=== PATIENT | male | born 1930 ===

== ENCOUNTER 2017-05-17 16:06 | Inpatient (IN) | payer MEDICARE, OTHER ==
[~2017-05-17] VITALS: Ht 182.9 cm; Wt 66.5 kg
[2017-05-17] MEDS ORDERED: K-DUR20 MEQ PO (18:34)
[2017-05-17] MEDS ORDERED: GAVISCON E1 TAB.CHEW PO (18:37)
[2017-05-17] MEDS ORDERED: PROVENTIL/2.5 MG/3 M INH (18:38)
[2017-05-17] MEDS ORDERED: BAYER CHEWABLE81 MG PO (18:39)
[2017-05-17] MEDS ORDERED: BUSPAR10 MG PO (18:40)
[2017-05-17] MEDS ORDERED: ALPHAGAN 0.2%5 ML EACH EYE (18:40)
[2017-05-17] MEDS ORDERED: TUMS500 MG PO (18:41)
[2017-05-17] MEDS ORDERED: COREG 3.1253.125 MG PO (18:41)
[2017-05-17] MEDS ORDERED: FAMOTIDINE10 MG PO (18:42)
[2017-05-17] MEDS ORDERED: LOVENOX40 MG/0.4 SC (18:42)
[2017-05-17] MEDS ORDERED: MUCINEX D1 TAB.SR . PO (18:43)
[2017-05-17] MEDS ORDERED: HYDROCODONE-APA1 TAB PO (18:44)
[2017-05-17] MEDS ORDERED: PRINIVIL10 MG PO (18:45)
[2017-05-17] MEDS ORDERED: XALATAN 0.0052.5 ML EACH EYE (18:45)
[2017-05-17] MEDS ORDERED: NITRO-BID60 GM TP (18:46)
[2017-05-17] MEDS ORDERED: NITROSTAT0.4 MG SL (18:47)
[2017-05-17] MEDS ORDERED: SEROQUEL50 MG PO (18:49)
[2017-05-17] MEDS ORDERED: ALDACTONE25 MG PO (18:49)
[2017-05-17] MEDS ORDERED: COMBIGAN OPHT DR5 ML EACH EYE (18:52)
[2017-05-19] MEDS ORDERED: KLOR-CON 1010 MEQ PO (18:01)
[2017-05-19] MEDS ORDERED: SEROQUEL50 MG PO (18:02)
[2017-05-19] MEDS ORDERED: FUROSEMIDE40 MG PO (18:19)
--- NOTE | 2017-05-19 18:30 | NUR ---
PATIENT IS BROUGHT TO DETENTION FROM [facility] VIA EMS ON A STRETCHER. PATIENT IS TRANSFERRED FROM STRETCHER TO A W/C. PATIENT C/O HAVING A SORE TO HIS BUTTOCKS AND HE SAYS HIS BUTT HURTS TO SIT ON THE W/C. HE IS ARGUMENTATIVE HIS FAMILY IS HERE SIGNING PAPERS. CODE WORDD ESTABLISHED. HE REFUSES TO GIVE UP HIS LIFE ALERT OR HIS WRIST WATCH. PATIENT IS EYAK AND HAS ONE HEARING AID IN THE LEFT EAR. HE HAS UPPER DENTURES AND A PARTIAL ON THE BOTTOM. FAMILY SAYS PATIENT IS ABLE TO WALK, BUT HE NEEDS TO USE HIS WALKER, HE HAS FALLEN 6 MONTHS AGO. HE IS UNSTEADY CURRENTLY. PATIENT IS SITTING IN THE W/C IN THE HALLWAY RIGHT NOW AND HE TOLD JO-ANN CONTEH HE WANTS TO GO HOME AND HIRE SOMEONE TO TAKE CARE OF HIM.
--- NOTE | 2017-05-19 19:33 | NUR ---
PATIENT DOES HAVE A BERGERON CATHETER HE HAS URINARY RETENTION.
[2017-05-20 01:53] VITALS: BP 108/74; BMI 21.9
--- NOTE | 2017-05-20 04:06 | NUR ---
B) PATIENT IS ALERT AND ORIENTED TO SELF AND HOSPITAL, RESTLESS AND WANTING TO GO HOME OR RETURN TO [facility], ARGUMENTIVE WITH FAMILY , VERY CONFUSED AND DOES NOT UNDERSTAND WHY HE IS HERE, I) ADMINISTERED SCHEDULED MEDICATIONS, REDIRECTED NEEDED, R) MEDICATION COMPLIANT, RESTLESS, P) CONTINUE PLAN OF CARE.
[2017-05-20 05:54] LABS: BASOPHILS 0.5 % (0-2); EOSINOPHILS 3.1 % (0-7); HEMATOCRIT 42.7 % (42.0-54.0); HEMOGLOBIN 15.2 g/dL (13.5-17.5); IMMATURE GRANULOCYTES 0.3 % (0-5); LYMPHOCYTES 15.2 % (15-50); MCH 34.9 pg (26.0-34.0); MCHC 35.6 g/dL (31.0-37.0); MCV 97.9 fL (80.0-100.0); MEAN PLATELET VOLUME 10.3 fL (7.4-10.4); MONOCYTES 12.3 % (2-11); NEUTROPHILS 68.6 % (40-80); PLATELET COUNT 222 10x3/uL (130-400); RBC 4.36 10x6/uL (4.20-6.10); RDW 13.5 % (11.5-14.5); WBC 7.4 10x3/uL (4.8-10.8)
[2017-05-20 06:12] LABS: HEMOGLOBIN A1C 5.2 % (4.8-6.0)
[2017-05-20 06:22] LABS: ALBUMIN 3.6 g/dL (3.4-5.0); ANION GAP 13.9 mmol/L (8-16); BILIRUBIN - TOTAL 0.68 mg/dL (0.2-1.3); CARBON DIOXIDE 28.9 mmol/L (21.0-32.0); CHOL - HDL RATIO 2.4 ratio (2.3-4.9); CREATININE - SERUM 1.1 mg/dL (0.6-1.3); LDL-HDL RATIO 1.2 ratio (1.5-3.5); POTASSIUM - SERUM 3.8 mmol/L (3.5-5.1); PROTEIN - SERUM 7.3 g/dL (6.4-8.2); THYROID STIMULATING HORMONE 4.27 uIU/mL (0.36-3.74)
[2017-05-20 07:00] VITALS: BP 94/42
[2017-05-20 08:18] LABS: APPEARANCE CLEAR (CLEAR); BILIRUBIN NEGATIVE (NEGATIVE); COLOR YELLOW (YELLOW); GLUCOSE NEGATIVE (NEGATIVE); KETONE NEGATIVE (NEGATIVE); LEUKOCYTE ESTERASE 1+ (NEGATIVE); NITRITE NEGATIVE (NEGATIVE); PROTEIN NEGATIVE (NEGATIVE); UROBILINOGEN NORMAL (NORMAL)
[2017-05-20 08:20] LABS: BACTERIA MODERATE /hpf (NONE SEEN); EPITHELIAL CELLS 0-5 /hpf (0-5)
--- NOTE | 2017-05-20 08:30 | NUR ---
PT SITTING IN DAY ROOM, EATING BREAKFAST. PT CALM AND COOPERATIVE. RR EVEN AND UNLABORED. PT DENIES NEEDS AT THIS TIME. WILL CPOC.
--- NOTE | 2017-05-20 10:45 | NUR ---
PT REPORTS FEELING VERY NERVOUS, REQUESTED A PAIN PILL. WILL GIVE PRN NORCO AND CTM PT CONDTION, VSS.
--- NOTE | 2017-05-20 11:13 | NUR ---
PT NOW REPORTING STOMACH PAIN. REQUESTED PRN FOR DYSPEPSIA. WILL GIVE AND CTM.
--- NOTE | 2017-05-20 17:05 | NUR ---
PT REQUESTED PAIN MEDICATION. GAVE PRN NORCO. WILL REASSESS PAIN AND CTM.
--- NOTE | 2017-05-20 18:02 | NUR ---
PT RESTING QUIETLY IN DAY ROOM, RR EVEN AND UNLABORED. PT DENIES NEEDS AT THIS TIME, WILL GIVE REPORT ON PT CONDITION FOR THE DAY.
[2017-05-20 19:30] VITALS: BP 85/61
--- NOTE | 2017-05-20 20:26 | NUR ---
B) PT SITTING ON COUCH IN DAY ROOM. PT IS ALERT AND ORIENTED AND ABLE TO VERBALIZE NEEDS. I) SHIFT ASSESSMENT AND MEDICATIONS AT THIS TIME. R) PT TOOK ALL MEDICATION WITH NO PROBLEMS AT THIS TIME. P) WILL CONTINUE CURRENT PLAN OF CARE.
[2017-05-21 07:00] VITALS: BP 84/54
--- NOTE | 2017-05-21 08:15 | NUR ---
ASSESSMENT COMPLETE. BERGERON PATENT DRAINING YELLOW URINE. UP AD JAE WITH WALKER. REFUSING TO SIT IN CHAIR IN HALLWAY AT NURSES' STATION. STATES HE CAN ONLY SIT IN A CHAIR WITH ARMS AND THAT HE GOING BACK TO ROOM AND DOESN'T WANT TO EAT BREAKFAST OR LUNCH.
--- NOTE | 2017-05-21 08:37 | NUR ---
EATING BREAKFAST IN DINING ROOM. AM MEDICATION GIVEN WITHOUT DIFFICULTY. NORCO GIVEN FOR COMPLAINTS OF GENERALIZED PAIN.
--- NOTE | 2017-05-21 09:15 | NUR ---
PATIENT NOTIFIED THAT SPITTING ON FLOOR IS NOT APPROPRIATE BEHAVIOR. VOICED UNDERSTANDING. SITTING ON COUCH RESTING QUIETLY AT THIS TIME.
[2017-05-21 10:24] VITALS: Ht 182.9 cm; Wt 66.5 kg
--- NOTE | 2017-05-21 11:08 | PSY ---
PATIENT NAME:ROSY ESPINO MEDICAL RECORD: [id number] : [birth year] LOCATION:[facility] ADMISSION DATE: 05/19/17 ACCOUNT: [id number] PSYCHIATRIC EVALUATION DATE OF EVALUATION: 05/20/17 Psychiatric Evaluation IDENTIFYING DATA: The patient is 86 years old and he is admitted to the hospital on a voluntary basis. CHIEF COMPLAINT: None. HISTORY OF PRESENT ILLNESS: The patient is referred to us from [facility]. The patient was referred to us because he has been argumentative with his family, very disorganized, making delusional and aggressive statements. The family is unable to manage him. He cannot assist himself and he will not allow them to do so. The patient has a number of medical problems for which he was recently hospitalized at [facility]. PAST MEDICAL HISTORY: Significant for hypertension, cardiac arrhythmia, glaucoma, coronary artery disease. PAST PSYCHIATRIC HISTORY: None by his account. The patient has not been diagnosed with a dementia as far as I know, but he clearly is severely impaired cognitively. SOCIAL HISTORY: The patient is . He does have adult children involved with his care. He is a [employer] War [employer] to and worked for many years in [place] for [employer]. He was a cnc machinist 2nd shift. He functioned reasonably well socially and occupationally and has no history of drug or alcohol abuse or legal entanglements. FAMILY HISTORY: Negative for psychiatric disease by his report. ALLERGIES: No known drug allergies. CURRENT MEDICATIONS: Include potassium, Lasix, aspirin, Aldactone, lisinopril, Coreg, Pepcid, calcium, Seroquel, BuSpar, hydrocodone, nitroglycerin, albuterol and a variety of eye drops for glaucoma. MENTAL STATUS EXAMINATION: The patient is awake, alert and oriented to person and place. He is significantly mistaken about both the date and the circumstances of his admission. His mood is anxious. His affect is constricted. Thought processes are circumstantial. Memory, concentration and abstraction abilities are least moderately impaired and he denies any active intent to harm himself or others as well as overt psychotic symptoms. ASSETS: Supportive family members. LIABILITIES: Limited insight. DIAGNOSTIC IMPRESSION: AXIS I: Senile dementia of the Alzheimer's type with behavioral disturbances. AXIS II: None. AXIS III: Chronic obstructive pulmonary disease, hypertension, cardiac arrhythmia, coronary artery disease. AXIS IV: Moderate stressors. AXIS V: Global assessment of functioning is 30. PLAN: At this time, the patient is admitted to the hospital secondary to agitated behavior associated with a dementing illness. He will be comprehensively evaluated from both of medical, psychological, and social standpoint. His long-term prognosis is guarded. TRANSINT:[id number] Voice Confirmation ID: [id number] DOCUMENT ID: [id number] SACHA MILTON MD at 1108 CC: [id number] DICTATION DATE: 05/20/17 1230 AUDIO DIRECTOR: 05/20/17 1307 ADM IN [place] [id number] [place] [id number]
--- NOTE | 2017-05-21 18:02 | NUR ---
COMPLAINING OF PAIN TO BUTTOCKS. REDNESS NOTED TO BUTTOCKS AND COCCYX. BUTT PASTE APPLIED. NORCO GIVEN FOR COMPLAINT OF GENERALIZED PAIN.
[2017-05-21 19:54] VITALS: BP 122/71
--- NOTE | 2017-05-21 20:31 | NUR ---
RECEIVED IN DAYRROM. SITTING IN RECLINING CHAIR WITH PEERS BY HIS SIDE. CALM AND COOPERATIVE WITH CARE AND ASSESSMENTS. NO SIGNS OF AGGRESSION. BERGERON INTACT. REDIRECT AND REORIENT NEEDED. CONTINUES TO SIT QUIETLY IN RECLINER. CONTINUE PLAN OF CARE
--- NOTE | 2017-05-21 21:40 | NUR ---
WHILE TRYING TO GIVE THE LOVENOX SHOT PATIENT REFUSED AFTER I SCANNED AND SUBMITTED. PLACED INTO HIS CASSETTE.
--- NOTE | 2017-05-22 07:35 | NUR ---
ASSESSMENT COMPLETE. REDNESS NOTED TO BUTTOCKS. BUTT PASTE IN USE. BERGERON PATENT DRAINING YELLOW URINE. COMPLAINING OF GENERALIZED PAIN.
[2017-05-22 08:00] VITALS: BP 94/58
--- NOTE | 2017-05-22 10:17 | PN ---
PATIENT:ROSY ESPINO MEDICAL RECORD: [id number] LOCATION:[facility] ADMISSION DATE: 05/19/17 PROGRESS NOTE DATE OF SERVICE: 05/21/2017 SUBJECTIVE: The patient's case was discussed with staff. He has no new complaint. OBJECTIVE: The patient has not been aggressive today. He clearly has significant cognitive impairment. He is only partially oriented and has almost no short-term memory. He has no overt psychotic symptoms. ASSESSMENT: No change in diagnoses. PLAN: I anticipate the patient will be transitioned out of the hospital in a day or two. His prognosis is guarded and his primary need at this time is for supervision. It is absolutely inappropriate for him to live alone. He has no insight about this being inappropriate. TRANSINT:[id number] Voice Confirmation ID: [id number] DOCUMENT ID: [id number] SACHA MILTON MD at 1017 CC: [id number] DICTATION DATE: 05/21/17 1409 CLOTH REELER: 05/21/17 1635 ADM IN [place] [address] [place] [address]
--- NOTE | 2017-05-22 19:59 | NUR ---
RECEIVED IN DAYROOM. SITTING IN CHAIR WITH PEERS AT HIS SIDE. CALM AND COOPERATIVE WITH CARE AND ASSESSMENTS. NO SIGNS OF AGGRESSION. ENCOURAGE TO EXPRESS NEEDS. CONTINUES TO SIT QUIETLY AT THIS TIME. CONTINUE PLAN OF CARE
[2017-05-22 21:15] VITALS: BP 124/59
[2017-05-23 06:14] LABS: RAPID PLASMA REAGIN Non Reactive (Non Reactive)
[2017-05-23 07:58] VITALS: BP 97/73
[2017-05-23 09:16] LABS: FOLATE (FOLIC ACID) - SERUM >20.0 ng/mL (>3.0)
[2017-05-23 10:17] LABS: VITAMIN D 25 HYDROXY 51.5 ng/mL (30.0-100.0)
--- NOTE | 2017-05-23 12:49 | PN ---
PATIENT:ROSY ESPINO MEDICAL RECORD: [id number] LOCATION:[facility] ADMISSION DATE: 05/19/17 PROGRESS NOTE DATE OF SERVICE: 05/22/2017 SUBJECTIVE: The patient's case was discussed with staff. He has no new complaint. OBJECTIVE: The patient is in good behavioral control. He has had no agitation. No paranoia. No psychotic symptoms. Unfortunately, he is also severely impaired cognitively. ASSESSMENT: No change in diagnoses. PLAN: The patient is not eating well. I am going to start him on Megace for its appetite-stimulating properties. His long-term prognosis is guarded. TRANSINT:[id number] Voice Confirmation ID: [id number] DOCUMENT ID: [id number] SACHA MILTON MD at 1249 CC: [id number] DICTATION DATE: 05/22/17 1025 LAST MODEL DEPARTMENT SUPERVISOR: 05/22/17 1042 ADM IN [place] [address] [place] [address]
--- NOTE | 2017-05-23 14:02 | NUR ---
B) PATIENT IS AWAKE AND ALERT, HE IS [place], WEARS A HEARING AID IN THE LEFT EAT AND HE HAS A BERGERON CATH THAT IS DRAINING CLEAR URINE. PATIENT IS IRRITABLE HE WANTS TO GET OUT OF HERE. HE IS GROUCHY, NO DELUSIONS OR MENTION OF ANY THIVERY TOWARD HIM. HE HAS NOT SHOWN AGGRESSION TODAY. I) PROVIDE PRESCRIBED MEDS. R) PATIENT IS COMPLIANT WITH MEDS. P) CONTINUE POC.
[2017-05-23 19:55] VITALS: BP 104/68
--- NOTE | 2017-05-23 23:50 | NUR ---
B) PATIENT IS ALERT AND ORIENTED TO SELF AND BEING IN A HOSPITAL, TURNS OFF HIS HEARING AID TO REST IN THE DAY ROOM AND NAP AT TIMES, I) ADMINISTERED SCHEDULED MEDICATIONS, MONITORED FOR BEHAVIORS, R) MEDICATION COMPLIANT, NO BEHAVIORS NOTED, P) CONTINUE PLAN OF CARE.
[2017-05-24 08:23] VITALS: BP 141/57
--- NOTE | 2017-05-24 11:06 | NUR ---
B) PATIENT IS AWAKE AND ALERT, HE IS QUIET AND HE IS SITTING TO HIMSELF. HE DOES NOT AMBULATE, HE SELF PROPELS IN THE W/C. HE HAS POOR SHORT TERM MEMORY RECALL. HE HAS BEEN COMPLIANT WITH MEDS TODAY. I) PROVIDE PRESCRIBED MEDS. R) PATIENT IS CALM AND RESERVED TODAY. P) CONTINUE POC.
[2017-05-24 19:34] VITALS: BP 107/54
[2017-05-24 20:18] LABS: ANION GAP 14.4 mmol/L (8-16); CALCIUM 9.2 mg/dL (8.5-10.1); CARBON DIOXIDE 26.7 mmol/L (21.0-32.0); CREATININE - SERUM 1.1 mg/dL (0.6-1.3); POTASSIUM - SERUM 4.1 mmol/L (3.5-5.1)
--- NOTE | 2017-05-25 02:01 | NUR ---
B) Patient is alert and oriented to self and being in a hospital, calm and cooperative with care and assessment, I) Administered scheduled medications, monitored for safety, R) Medication compliant, no behaviors noted, P) Continue plan of care.
[2017-05-25 07:53] VITALS: BP 115/71
--- NOTE | 2017-05-25 07:53 | PN ---
PATIENT:ROSY ESPINO MEDICAL RECORD: [id number] LOCATION:[facility] ADMISSION DATE: 05/19/17 PROGRESS NOTE DATE OF SERVICE: 05/24/2017 SUBJECTIVE: No new complaint. OBJECTIVE: The patient has been rather quiet and somewhat withdrawn. He has a past history of labile moods, but affect has been well controlled. He is just recently been started on antidepressants. On exam, mood is euthymic. Affect is rather constricted. Speech is low in volume and somewhat terse. Content of thought is negative for overt psychosis. Sensorium shows no change. ASSESSMENT: No change in diagnosis. PLAN: 1. Continue all current medications. 2. Continue supportive therapy. TRANSINT:[id number] Voice Confirmation ID: [id number] DOCUMENT ID: [id number] ANIYAH DRAKE III, MD at 0753 CC: [id number] DICTATION DATE: 05/24/17 1201 CUSTOM SKI MAKER: 05/24/17 1211 ADM IN [place] [id number] [place] [address]
[2017-05-25 19:51] VITALS: BP 84/49
--- NOTE | 2017-05-25 21:40 | PN ---
PATIENT:ROSY ESPINO MEDICAL RECORD: [id number] LOCATION:[facility] ADMISSION DATE: 05/19/17 PROGRESS NOTE DATE OF SERVICE: 05/25/2017 SUBJECTIVE: No new complaint. OBJECTIVE: Staff reports the patient continues to be somewhat manipulative in his behavior. He is rather attention seeking and drug seeking as well. On exam, mood is more or less euthymic. Affect is fairly bland. Speech tends to be somewhat tangential. Content of thought is preoccupied with somatic concerns. Sensorium is unchanged. ASSESSMENT: No change in diagnosis. PLAN: 1. Continue current medications. 2. Continue supportive therapy. TRANSINT:[id number] Voice Confirmation ID: [id number] DOCUMENT ID: [id number] ANIYAH DRAKE III, MD at 2140 CC: [id number] DICTATION DATE: 05/25/17 1227 HOME HEALTH AID: 05/25/17 1318 ADM IN [place] [address] [place] [id number]
--- NOTE | 2017-05-26 03:14 | NUR ---
B) patient alert and oriented to self and being in a hospital, calm and watching TV, cooperative with care and assessment. I) Administered scheduled medications, PRN Gaviscon 2 tabs given at 20:12, monitored for falls and safety. R) Medication compliant, no behaviors noted this shift. P) Continue plan of care.
--- NOTE | 2017-05-26 09:00 | NUR ---
B) ASSESSMENT COMPLETED. HE IS AWAKE AND ALERT, BUT VERY [place], AND WEARS A HEARING AID IN LEFT EAR ONLY. HE SELF PROPELS IN A WHEELCHAIR. NO AGGRESSION NOTED, ONLY IRRITABLE ABOUT BEING HERE. I) ADMINISTER PRESCRIBED MEDICATIONS. MONITOR FOR FALLS AND SAFETY. R) MEDICATION COMPLIANT AND RESTING QUIETLY IN RECLINER. P) CONTINUE PLAN OF CARE.
[2017-05-26 10:20] VITALS: BP 89/48
--- NOTE | 2017-05-26 13:14 | NUR ---
ULTRAM 50 MG PO GIVEN FOR LEVEL #8 KEG PAIN.
[2017-05-26 19:30] VITALS: BP 94/61
--- NOTE | 2017-05-27 03:46 | NUR ---
B) Patient alert and oriented to self, calm and cooperative with care and assessment, conplained of stomach upset, I) Administered scheduled medications, PRN Tums given , monitored for falls and safety. R) Medication compliant, resting quietly now. P) Continue plan of care.
[2017-05-27 07:00] VITALS: BP 106/69
--- NOTE | 2017-05-27 16:22 | NUR ---
ORIENTED TO SELF AND HOSPITAL.NO SIGNS OF AGGRESSION.COMPLIANT WITH MEDS AND STAFF.REST IN RECLINER.AMBULATES WITH PT.TRAMADOL GIVEN FOR C/O GENERALIZED PAIN.WILL CONTINUE WITH PLAN OF CARE,MONITOR FOR CHANGES AND SAFETY.
[2017-05-27 19:47] VITALS: BP 100/57
--- NOTE | 2017-05-27 23:47 | NUR ---
RECEIVED IN BEDROOM. RESTING IN BED WITH EYES OPEN. CALM AND COOPERATIVE WITH CARE AND ASSESSMENTS. NO SIGNS OF AGGRESSION. ENCOURAGE TO EXPRESS NEEDS. CONTINUES TO REST EYES CLOSED AT THIS TIME. CONTINUE PLAN OF CARE
[2017-05-28 07:22] LABS: ALBUMIN 3.2 g/dL (3.4-5.0); ANION GAP 11.5 mmol/L (8-16); BILIRUBIN - TOTAL 0.69 mg/dL (0.2-1.3); CALCIUM 9.3 mg/dL (8.5-10.1); CARBON DIOXIDE 30.8 mmol/L (21.0-32.0); CREATININE - SERUM 1.3 mg/dL (0.6-1.3); POTASSIUM - SERUM 4.3 mmol/L (3.5-5.1)
[2017-05-28 08:00] VITALS: BP 124/75
--- NOTE | 2017-05-28 09:48 | PN ---
PATIENT:ROSY ESPINO MEDICAL RECORD: [id number] LOCATION:[facility] ADMISSION DATE: 05/19/17 PROGRESS NOTE DATE OF SERVICE: 05/23/2017 SUBJECTIVE: The patient's case was discussed with staff. He has no new complaint. OBJECTIVE: The patient says that this is a big misunderstanding that he has no issues that would require him to be here and when that is argued with him, he becomes angry. He clearly has depressive symptoms. His family says that he has made statements about wanting to hurt himself. He emphatically denies that. ASSESSMENT: No change in diagnoses. PLAN: The patient will be given Zoloft at a dose of 25 mg daily. Zoloft is being used to treat his underlying depressive symptoms. He will be monitored for clinical changes associated with its use. TRANSINT:[id number] Voice Confirmation ID: [id number] DOCUMENT ID: [id number] SACHA MILTON MD at 0948 CC: [id number] DICTATION DATE: 05/23/17 1256 BEST SECOND JOBS: 05/23/17 1305 ADM IN [place] [id number] [place] [address]
--- NOTE | 2017-05-28 10:00 | NUR ---
Alert and oriented to name and place. Calm and cooperative with care. No agitation. Compliant with medications. Safety maintained. Continue with plan of care.
--- NOTE | 2017-05-28 11:26 | PN ---
PATIENT:ROSY ESPINO MEDICAL RECORD: [id number] LOCATION:[facility] ADMISSION DATE: 05/19/17 PROGRESS NOTE DATE OF SERVICE: 05/27/2017 SUBJECTIVE: No new complaint. OBJECTIVE: The patient continues to be somewhat manipulative in his behavior, but overall has been cooperative. Mood is euthymic. Affect is somewhat shallow and brittle. Speech tends to be tangential. Content of thought focuses on somatic concerts. Sensorium shows no change. ASSESSMENT: No change in diagnoses. PLAN: 1. To continue all current medications. 2. Continue supportive therapy. TRANSINT:[id number] Voice Confirmation ID: [id number] DOCUMENT ID: [id number] ANIYAH DRAKE III, MD at 1126 CC: [id number] DICTATION DATE: 05/27/172145 STRAP SETTER: 05/27/17 [address] [facility] [address] [place] [address]
--- NOTE | 2017-05-28 18:13 | NUR ---
PATIENT C/O BEING SICK TO HIS STOMACH, GAVISCON PROVIDED PER HIS REQUEST. SEE MAR.
[2017-05-28 19:25] VITALS: BP 104/54
--- NOTE | 2017-05-28 19:37 | NUR ---
RECEIVED IN HALLWAY. SITTING IN RECLINING CHAIR. CALM AND COOPERATIVE WITH CARE AND ASSESSMENTS. NO SIGNS OF AGGRESSION. BERGERON INTACT. REDIRECT AND REORIENT NEEDED. CONTINUES TO SIT QUIETLY. CONTINUE PLAN OF CARE
[2017-05-29 07:00] VITALS: BP 130/94
--- NOTE | 2017-05-29 07:50 | PN ---
PATIENT:ROSY ESPINO MEDICAL RECORD: [id number] LOCATION:[facility] ADMISSION DATE: 05/19/17 PROGRESS NOTE DATE OF SERVICE: 05/28/2017 SUBJECTIVE: The patient's case was discussed with staff. He has no new complaint. OBJECTIVE: The patient denies intent to harm himself or others. He is oriented to person, place and somewhat to time and situation. His mood is flat. His affect is appropriate. ASSESSMENT: No change in diagnoses. PLAN: He has not been eating well for some time and I have started him on Megace to address this issue. The Namenda certainly is something that could affect appetite, but it does not seem to have had an impact on him since it was started. I am going to make a presumption that perhaps there are some depressive equivalents here and we will treat him with Zoloft. The patient's Zoloft will be increased to 50 mg daily. Supportive and educational interventions were made. TRANSINT:[id number] Voice Confirmation ID: [id number] DOCUMENT ID: [id number] SACHA MILTON MD at 0750 CC: [id number] DICTATION DATE: 05/28/17 0956 CAN FILLING ROOM SWEEPER: 05/28/17 1524 ADM IN [place] [id number] [place] [address]
--- NOTE | 2017-05-29 09:02 | NUR ---
PTB WAS MEDICATED WITH ULTRAM PERV ORDERS FOR C/OAINRATING 7/10 ON PAIN SCALE TO BACK AND TAILBONE
--- NOTE | 2017-05-29 09:44 | NUR ---
NUTRITION MONITORING & EVAL CHART REVIEWED. PT ON REG DIET WITH ENSURE. PO INTAKE REMAINS POOR AT THIS TIME. +BM CHARTED. WILL CONTINUE TO PROVIDE DIET/ENSURE. MONITOR PO INTAKE. RD FOLLOWING
--- NOTE | 2017-05-29 10:00 | NUR ---
ASSESSMENT COMPLETED. ALERT TO NAME AND PLACE ONLY. BERGERON CATHETER PATENT WITH ZOEY COLOR URINE. CALM AND COOPERATIVE WITH CARE NO AGGRESSION NOTED. PRESCRIBED MEDICATIONS GIVEN. SAFETY MAINTAINED. WILL CONTINUE PLAN OF CARE.
[2017-05-29 17:10] VITALS: BP 114/75
[2017-05-29 19:37] VITALS: BP 106/62
--- NOTE | 2017-05-29 19:43 | NUR ---
RECEIVED IN HALLWAY. SITTING IN RECLINING CHAIR OUTSIDE OF NURSING STATION. BERGERON INTACT. CALM AND COOPERATIVE WITH CARE AND ASSESSMENTS. NO SIGNS OF AGGRESSION. REDIRECT AND REOIENT NEEDED. CONTINUES TO SIT QUIETLY. CONTINUE PLAN OF CARE
[2017-05-30 08:48] VITALS: BP 122/88
--- NOTE | 2017-05-30 09:30 | NUR ---
Rec'd pt in dining room for b'fast, alert, complaining, no aggression. Meds admin per orders, group therapy provided. Pt med compliant and present for group. No adverse reaction noted with meds. Continue plan of care including medications and group therapy.
--- NOTE | 2017-05-30 15:29 | PN ---
PATIENT:ROSY ESPINO MEDICAL RECORD: [id number] LOCATION:[facility] ADMISSION DATE: 05/19/17 PROGRESS NOTE DATE OF SERVICE: 05/29/2017 SUBJECTIVE: The patient's case was discussed with staff. He has no new complaint. OBJECTIVE: The patient is in good behavioral control with limited insight about his condition. He is partially oriented. ASSESSMENT: No change in diagnoses. PLAN: Supportive and educational interventions were made. The patient's long-term prognosis is guarded. I anticipate that he can be transitioned out of the hospital soon if this level of improvement is maintained. TRANSINT:[id number] Voice Confirmation ID: [id number] DOCUMENT ID: [id number] SACHA MILTON MD at 1529 CC: [id number] DICTATION DATE: 05/29/17 1428 RAG BOILER: 05/29/171941 ADM IN [facility] [address] [place] [address]
[2017-05-30] MEDS ORDERED: MEGACE40 MG PO (15:50)
[2017-05-30] MEDS ORDERED: ULTRAM50 MG PO (15:51)
[2017-05-30] MEDS ORDERED: ZOLOFT50 MG PO (15:51)
[2017-05-30] MEDS ORDERED: NAMENDA5 MG PO (15:51)
[2017-05-30] MEDS ORDERED: MULTI-DAY VITAM1 TAB PO (15:52)
[2017-05-30 19:30] VITALS: BP 103/62
--- NOTE | 2017-05-30 20:30 | NUR ---
B) ALERT AND ORIENTED TO SELF ONLY. CALM AND COOPERATIVE, NO AGGRESSION NOTED. PATIENT IS VERY [place], WEARS AIDE IN LEFT EAR ONLY. I) ADMINISTER PRESCRIBED MEDICATIONS, MONITOR FOR SAFETY. R) COMPLIANT WITH TAKING MEDICATIONS, RESTING QUIETLY IN BED. P) CONTINUE PLAN OF CARE.
--- NOTE | 2017-05-31 03:20 | NUR ---
ULTRAM 50 MG PO GIVEN FOR HIP PAIN AT LEVEL #9.
--- NOTE | 2017-05-31 07:56 | NUR ---
B) PATIENT IS AWAKE EXPLAINED TO HIM THAT HE IS LEAVING TODAY, GOING HOME. PATIENT IS HAPPY ABOUT THAT. PATIENT IS CONFUSED, HE HAS POOR SHORT TERM MEMORY RECALL. PATIENT USES A W/C TO SELF PROPEL. I) BEGIN D/C PAPER WORK. R) PATIENT IS COMPLIANT WITH MEDS AND UNIT MILIEU. P) CONTINUE POC.
[2017-05-31 09:41] VITALS: BP 84/53
--- NOTE | 2017-05-31 12:33 | PN ---
PATIENT:ROSY ESPINO MEDICAL RECORD: [id number] LOCATION:[facility] ADMISSION DATE: 05/19/17 PROGRESS NOTE DATE OF SERVICE: 05/30/2017 SUBJECTIVE: The patient's case was discussed with staff. He has no new complaint. OBJECTIVE: The patient denies intent to harm himself or others. He is significantly and seriously impaired cognitively. He has not been aggressive today. ASSESSMENT: No change in diagnoses. PLAN: The patient will have his Namenda increased to 5 mg twice daily. Namenda is being used to treat his underlying psychiatric symptoms, particularly the memory loss. His long-term prognosis is guarded. I would anticipate he could be transitioned out of the hospital soon if this level of improvement is maintained and as this is being written, arrangements are being made for him to go to a rehabilitation facility to work on deconditioning. TRANSINT:[id number] Voice Confirmation ID: [id number] DOCUMENT ID: [id number] SACHA MILTON MD at 1233 CC: [id number] DICTATION DATE: 05/30/17 1546 INTERVENTIONAL RADIOLOGY TECHNOLOGIST: 05/30/17 2157 ADM IN [facility] [address] [place] [id number]
--- NOTE | 2017-05-31 13:30 | NUR ---
PATIENT IS D/C'D FROM THE UNIT, REPORT CALLED TO JENNY AT [facility], HARD COPIES AND EYDROPS SENT WITH PATIENT ALONG WITH A FEW HEARING AID BATTERIES AND PATIENTS CLOTHES.
--- NOTE | 2017-06-01 11:54 | PN ---
PATIENT:ROSY ESPINO MEDICAL RECORD: [id number] LOCATION:[facility] ADMISSION DATE: 05/19/17 PROGRESS NOTE DATE OF SERVICE: 05/31/2017 SUBJECTIVE: The patient's case was discussed with staff. He has no new complaint. OBJECTIVE: The patient has no evidence of acute or direct dangerousness. He is tolerating his medicines well. ASSESSMENT: No change in diagnoses. PLAN: The patient will be transitioned out of the hospital today. He is going to go to a local snf. Followup will be with the snf physician. His long-term prognosis is guarded. TRANSINT:[id number] Voice Confirmation ID: [id number] DOCUMENT ID: [id number] SACHA MILTON MD at 1154 CC: [id number] DICTATION DATE: 05/31/17 1256 BOOKS BINDER: 05/31/171928 DIS IN 05/31/17 [facility] [address] [place] [address]
== END 2017-05-31 13:39 | DRG 57 ==
LOC: D.PSYCH 16:06
PROVIDERS: Family Medicine; ADMIT Psychiatry & Neurology Psychiatry
DX: G30.1 Alzheimer's disease with late onset (principal); F02.81 Dementia in other diseases classified elsewhere, unspecified severity, with behavioral disturbance; N39.0 Urinary tract infection, site not specified; J44.9 Chronic obstructive pulmonary disease, unspecified; I11.0 Hypertensive heart disease with heart failure; I50.9 Heart failure, unspecified; H40.9 Unspecified glaucoma; K21.9 Gastro-esophageal reflux disease without esophagitis; F41.9 Anxiety disorder, unspecified; G89.4 Chronic pain syndrome; B95.2 Enterococcus as the cause of diseases classified elsewhere; I25.10 Atherosclerotic heart disease of native coronary artery without angina pectoris; E78.5 Hyperlipidemia, unspecified; N40.0 Benign prostatic hyperplasia without lower urinary tract symptoms